=== PATIENT | female | born 1975 | race Caucasian/White ===

== ENCOUNTER 2016-11-12 07:53 | Day surgery (SDC) | payer OTHER ==
[~2016-11-12] VITALS: Ht 162.6 cm; Wt 152.6 kg
[~2016-11-12 07:53] MED LIST: BUPR75TA10 PO; CeFAZolin Inj 3 GM in IV Premix IV ONE; GABA-502 PO; MDR150V IM; NPR500T PO; TRAZ-115 PO
[2016-11-12] MEDS ORDERED: Propofol 10,000 mCg/mL 20 mL Inj ONE ×2 (07:54)
[2016-11-12] MEDS ORDERED: Ketamine 10 mg/mL 20 mL Inj ONE (07:54)
[2016-11-12] MEDS ORDERED: 0.9% Sodium Chloride 10 mL Inj ONE (07:54)
[2016-11-12] MEDS: Lactated Ringer's 1,000 ML IV SCH ×2 (08:00→09:45)
[2016-11-12] MEDS ORDERED: tylenol PO (08:10)
[2016-11-12 08:18] VITALS: BP 128/66; PULSE 86; RESP 12; O2SAT 97
--- NOTE | 2016-11-12 09:31 | PCM.HPANE ---
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 Admitting Provider: Attending Provider:Manuel Mckenzie MD Primary Care Physician:Jorje Pat DO Other Provider: Reason for Visit Right Carpal Tunnel Syndrome Ht/WT & BMI Height (Feet): 5 Height (Inches): 4.00 Weight (Kilograms): 152.600 Body Mass Index 57.00 Allergies Coded Allergies: Sulfa (Sulfonamide Antibiotics) (Verified Allergy, Unknown, UNKNOWN, ) hydrocodone (Verified Allergy, Unknown, UNKNOWN, 11/09/16) morphine (Verified Allergy, Unknown, UNKNOWN, 11/09/16) oxycodone (Verified Allergy, Unknown, UNKNOWN, 11/09/16) Allergies Patient has tolerated Dilaudid and Demerol Past Anesthesia History Anesthesia History: Denies:: Anesthesia Reactions Diabetes History Hx Diabetes?: No MRSA MRSA: No Medications Home Meds Incl Beta Honorio: No Reported Medications [tylenol] No Conflict [id number] Mg PO prn p 11/12/16 Trazodone 50 Mg Iuxyxa65-104 Mg PO HS PRN For Sleep Ref 0 11/09/16 Naproxen 500 Mg Pdg800 Mg PO BID PRN For Pain Ref 0 11/09/16 Gabapentin 300 Mg [id number] Mg PO TID Ref 0 11/09/16 Medroxyprogesterone Acetate (Depo-Provera)150 Mg/Ml Qpiyztl394 Mg IM Q 3 MONTHS 11/09/16 Bupropion 75 Mg Mdzgrr21 Mg PO TID Ref 0 11/09/16 History History of ENT Problems?: Yes HEENT History: Positive for:: Sinus Problem (HX SINUSITIS/SEASONAL ALLERGIES) Denture Type: None Teeth Condition: Within Normal Limits Hx of Heart Problems?: Yes Cardiovascular History: Denies:: Heart Murmur Hypertension Other Cardiac History: HX ANEMIA Hx of Respiratory Problem?: No Respiratory History: Denies:: Use of C-PAP Machine Hx Neurologic Problems?: Yes Neurological History: Positive for:: Headaches Other Neurological Pertinent: C/OF NSOMNIA Hx of GI Problems?: Yes Other GI Pertinent History: OBESITY Hx of Problems?: No Female Hx: Denies:: Currently Skin History: Denies:: History Skin Disorders? Pressure Ulcers Hx Musculoskeletal Problems?: Yes Musculoskeletal History: Positive for:: Musculoskeletal Trauma (S/P RT KNEE MENISECTOMY,LT ANKLE RECONSTRUCTION X2) Denies:: Back Injury (C/OF BACK PAIN/SCIATICA) Hx of Psycho/Social Problems?: Yes Psycho Social History: Positive for:: Anxiety Hx Depression Hx Surgeries?: Yes (RT KNEE MENISECTOMY,LT ANKLE RECONSTRUCTION X2) Hx Any Other Health Problems?: Yes Other History: Denies:: Cancer Endocrine Disease Hospitalization Thyroid Disease Hx Diabetes: No Hx Alcohol Use: Yes (OCCAS)Hx Substance Use: NoHave You Smoked inLast 12 mo: Yes Stop/Bang S-Snoring: Do You Snore Loudly: No T-Tired: feel tired, fatigued: Yes O-Obsered: Observed not breath: No P-Blood Pressure: treated: No B- Body Mass Index > 35 kg/m2: Yes A- Age over 50: No N- Neck Large Circumference: Yes G- Gender Male: No YOUNG Total Score: 3 Risk Assessment Category Category 1A: Patient has history of documented sleep apnea, and HAS NOT received any narcotic, sedative or anesthesia administration during this stay. Category 1B: Patient has history of documented sleep apnea, and HAS received any narcotic , sedative or anesthesia administration during this stay Category 2: Patient has SUSPECTED Obstructive Sleep Apnea, and HAS received any narcotic , sedative or anesthesia administration during this stay. Category 3: Patient has SUSPECTED Obstructive Sleep Apnea and HAS NOT received narcotic, sedative or anesthesia administration during this stay. Category 4: Outpatient in Procedural Areas with known sleep apnea or who screen positive for High Risk via the STOP/BANG questionnaire. Exam Exam Vital Signs Vital Signs Date Time Temp Pulse Resp B/P Pulse Ox O2 Delivery O2 Flow Rate FiO2 11/12/16 08:18 36.1 86 12 128/66 97 Room Air General Appearance: Alert, Oriented X3 HEENT/AIRWAY: MP 2, Neck Movement (FROM) Lungs: Clear to Auscultation, Clear to Percussion Heart: Exam Unremarkable, Regular Rate/Rhythm Meds/Labs/Diagnostics Admission Meds Current Medications Lactated Ringer's (Lr) 1,000 ml @ 120 mls/hr Q8H20M IV Last administered on t 08:00; Start 11/12/16 at 05:00; Stop 11/12/16 at 13:19 Plan Impression Patient chart reviewed, patient interviewed and anesthestic plan with risks, benefits, and alternatives discussed, and informed consent obtained. ASA Physical Status: ASA3 Severe Disease (morbid obesity (BMI over 50); tobacco use) Anesthetic Plan: Regional Block (rom block with GA as backup) Bene/Risks/Altern/Consents: Yes HP Complete Prior to Induction: Yes Hiram Call MD Nov 12, 2016 08:30
[2016-11-12] MEDS ORDERED: MetoCLOpramide 5 mg/mL 2 mL Inj IVPUSH PRN (10:10)
[2016-11-12] MEDS ORDERED: Atropine 0.4 mg/mL Inj IVPUSH PRN (10:10)
[2016-11-12] MEDS ORDERED: fentaNYL-PF 50 mCg/mL 2 mL Inj IVPUSH PRN (10:10)
[2016-11-12] MEDS ORDERED: Lactated Ringer's 500 ML IV PRN (10:10)
[2016-11-12] MEDS ORDERED: HYDROmorphone 1 mg/mL Inj IVPUSH PRN (10:10)
[2016-11-12] MEDS ORDERED: Labetalol 5 mg/mL 4 mL Inj IV PRN (10:10)
[2016-11-12] MEDS ORDERED: Phenylephrine 10,000 mCg/mL Inj IVPUSH PRN (10:10)
[2016-11-12] MEDS ORDERED: Lactated Ringer's 1,000 ML IV SCH (10:10)
[2016-11-12] MEDS ORDERED: EPHEDrine Sulfate 50 mg/mL Inj IVPUSH PRN (10:10)
[2016-11-12] MEDS ORDERED: Ondansetron 2 mg/mL 2 mL Inj IVPUSH PRN (10:10)
[2016-11-12] MEDS ORDERED: Bupivacaine-MPF 0.5% 30 mL Inj INFILTRATE ONE (10:22)
[2016-11-12 10:47] VITALS: BP 134/63; PULSE 73; RESP 18; O2SAT 99
--- NOTE | 2016-11-12 11:37 | OP ---
[address] [address] OPERATIVE REPORT PATIENT: ALIYAH AL : 1975 MR#: [id number] ADMIT: 11/12/2016 JOB ID: [id number] DATE OF SURGERY: 11/12/2016 PREOPERATIVE DIAGNOSIS(ES): Right carpal tunnel syndrome, ICD-10 code G56.01. POSTOPERATIVE DIAGNOSIS(ES): Right carpal tunnel syndrome, ICD-10 code G56.01. PROCEDURE: Right carpal tunnel release, CPT code 05135. SURGEON: Manuel Mckenzie MD. ANESTHESIA: Regional Hodgen block to right forearm. ESTIMATED BLOOD LOSS: 2 mL. SPONGE AND NEEDLE COUNT: Correct. COMPLICATIONS: No complications. SPECIMEN: No specimen to Pathology. 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 The patient was more symptomatic on the right than left, with pain, numbness and tingling in the right hand. The patient had failed conservative treatment. The patient was authorized by [facility] to undergo a right carpal tunnel release. DESCRIPTION OF PROCEDURE: The patient was carefully moved from the stretcher to the operating room table. Anesthesia performed a regional Juan block. The right arm was prepped and draped in a sterile fashion. Appropriate time-out was called. The skin was tested and noted to be anesthetic. An incision was fashioned just ulnar to the thenar crease in the palm of the hand. Care was taken to protect any visible branches of the palmar cutaneous nerve. The palmar fascia was incised. [place] elevator was used to clear the proximal portion of the transverse carpal ligament. A small incision was fashioned in the transverse carpal ligament, and a [place] elevator placed under the ligamentn and it was released from a proximal to distal direction. Care was taken to protect the superficial palmar arch distally. The recurrent motor branch was visualized, and there was no scar tissue noted around that motor branch. Care was also taken to protect the ulnar nerve more ulnarward. The ligament was released. The nerve was noted to be hyperemic, swollen and bulging from underneath the carpal ligament once it was released. Attention was next turned to the antebrachial cutaneous fascia more proximally. The skin was elevated from the subcutaneous tissue. Under direct visualization with the wrist in slight flexion to push the nerve away from the antebrachial fascia, a portion of the antebrachial cutaneous fascia was released just proximal to the distal wrist crease. Again, the nerve was noted to be very swollen and irritated. The wound was irrigated with saline and infiltrated with 0.5% plain Marcaine. Tourniquet released. Minimal hemostasis required. The skin was reapproximated with interrupted horizontal mattress sutures of 4-0 nylon. Xeroform dry sterile bulky dressing was applied. The patient was placed in a well-padded volar fiberglass splint. She was taken to recovery room in stable condition. Sponge and needle counts were correct. No complications. PLAN: The patient will be seen back in the office in two weeks for suture removal. I have asked that she be gentle with range of motion to the wrist and fingers but not do any heavy lifting or gripping or any excessive typing for six weeks.May be changed back to a velcro wrist support in two weeks to use while driving or doing activities such as going to the grocery store. CC: [facility] CC: Antonio Jaimes
[2016-11-12 11:43] VITALS: BP 115/66; PULSE 79; RESP 18; O2SAT 97
== END 2016-11-12 23:59 | disposition home or self-care (01) ==
LOC: SAS 07:53
PROVIDERS: ATTEND Orthopaedic Surgery
DX: G56.01 Carpal tunnel syndrome, right upper limb (principal); J30.2 Other seasonal allergic rhinitis; M50.30 Other cervical disc degeneration, unspecified cervical region; E66.01 Morbid (severe) obesity due to excess calories; F41.8 Other specified anxiety disorders; D64.9 Anemia, unspecified; F17.210 Nicotine dependence, cigarettes, uncomplicated; Z68.44 Body mass index [BMI] 60.0-69.9, adult
CPT/HCPCS: 64721; J0690; J2250; J7120